=== PATIENT | male | born 1960 | race Caucasian/White ===

== ENCOUNTER 2022-02-25 05:24 | Inpatient (IN) | payer OTHER ==
[2022-02-19 15:01] LABS: BASOPHILS # (AUTO) 0.1 X10'3 (0-0.2); BASOPHILS % (AUTO) 1.1 % (0-1); EOSINOPHILS # (AUTO) 0.2 X10'3 (0-0.9); EOSINOPHILS % (AUTO) 2.6 % (0-6); MEAN CORPUSCULAR HEMOGLOBIN 31.3 PG (27.0-31.0); MEAN CORPUSCULAR HGB CONC 34.5 g/dL (33.0-36.5); MEAN CORPUSCULAR VOLUME 90.8 FL (78-98); MEAN PLATELET VOLUME 7.4 FL (7.4-10.4); MONOCYTES # (AUTO) 0.5 X10'3 (0-0.9); NEUTROPHILS # (AUTO) 3.9 X10'3 (1.8-7.7); NEUTROPHILS % (AUTO) 58.3 % (42-75); PRE OP HEMATOCRIT 43.2 % (42.0-52.0); PRE OP HEMOGLOBIN 14.9 g/dL (14.0-17.9); PRE OP PLATELET COUNT 227 X10'3 (140-440); RED BLOOD COUNT 4.76 X10'6 (4.70-6.10); RED CELL DISTRIBUTION WIDTH 13.9 % (11.5-14.5)
[2022-02-19 15:09] LABS: ALBUMIN 3.9 G/DL (3.4-5.0); ALBUMIN/GLOBULIN RATIO 1.1 (1.1-1.5); ALKALINE PHOSPHATASE 86 IU/L (46-116); BLOOD UREA NITROGEN 16 MG/DL (7-18); BUN/CREATININE RATIO 14.3 (5.4-32.0); CALCIUM 8.6 MG/DL (8.5-10.1); CHLORIDE 109 MMOL/L (99-107); CREATININE 1.12 MG/DL (0.60-1.10); PRE OP ALT 32 U/L (30-65); PRE OP ANION GAP 9 (8-16); PRE OP AST 19 U/L (10-37); PRE OP BILIRUB, TOTAL 0.4 MG/DL (0.0-1.0); PRE OP GLUCOSE 94 MG/DL (70-104); PRE OP POTASSIUM 4.1 MMOL/L (3.4-5.1); PRE OP SODIUM 145 MMOL/L (135-145); TOTAL CARBON DIOXIDE 26.8 MMOL/L (24-32); TOTAL PROTEIN 7.4 G/DL (6.4-8.2); eGFR 66 ML/MIN
[2022-02-25] VITALS (22 sets, daily range): BP systolic 106–157; BP diastolic 66–95
[~2022-02-25] VITALS: Ht 182.9 cm; Wt 124.0 kg
[~2022-02-25 05:24] MED LIST: NO HOME MEDS; ringers solution, lacted 1,000 ML IV SCH
[2022-02-25] MEDS ORDERED: celeCOXIB 100mg capsule PO ONE (05:30)
[2022-02-25] MEDS ORDERED: gabapentin 300mg capsule PO ONE (05:30)
[2022-02-25] MEDS ORDERED: vancomycin 1,500 MG in NS 300ml IV soln IV ONE (05:30)
[2022-02-25] MEDS ORDERED: acetaminophen 325mg tablet PO ONE (05:30)
[2022-02-25] MEDS ORDERED: tranexamic acid inj. 1,000 MG in normal saline 100ml IV soln 90 ML IV ONE (05:30)
[2022-02-25] MEDS ORDERED: ceFAZolin inj. 3,000 MG in normal saline 100ml IV soln 100 ML IV ONE ×2 (05:30→16:00)
[2022-02-25] MEDS ORDERED: famotidine 20mg tablet PO ONE (05:30)
[2022-02-25] MEDS ORDERED: metoclopramide 5 mg/ml inj IV ONE (05:30)
[2022-02-25] MEDS: oxyCODONE SR 10mg (sust. release) tab -2 tabs (20mg) PO ONE ×2 (06:01→06:30)
[2022-02-25] MEDS ORDERED: ondansetron/PF 4mg/2ml inj IV PRN ×2 (06:45→07:20)
[2022-02-25] MEDS ORDERED: HYDROmorphone inj. 0.5 MG/0.5 ML DISP.SYRIN IV PRN (06:45)
[2022-02-25] MEDS ORDERED: magnesium hydroxide 30ml (MOM) UD suspension PO PRN (06:45)
[2022-02-25] MEDS ORDERED: diphenhydrAMINE 25mg capsule PO PRN ×2 (06:45)
[2022-02-25] MEDS ORDERED: bisacodyl 10mg suppository rectal RC PRN (06:45)
[2022-02-25] MEDS ORDERED: tranexamic acid inj. 1,250 MG in normal saline 100ml IV soln 100 ML IV ONE ×2 (06:45→12:00)
[2022-02-25] MEDS ORDERED: naloxone 0.4 mg/ml inj IV PRN (06:45)
[2022-02-25] MEDS ORDERED: acetaminophen 325mg tablet PO PRN (06:45)
[2022-02-25] MEDS ORDERED: oxyCODONE/APAP 10/325mg tablet PO PRN (06:45)
[2022-02-25] MEDS ORDERED: fentaNYL/PF 50MCG/1 ML 2ML syringe ONE (07:13)
[2022-02-25] MEDS ORDERED: MIDAZolam 1 MG/ML 5ML VIAL ONE (07:13)
[2022-02-25] MEDS ORDERED: cloNIDine hcl/PF 100mcg/ml inj ONE (07:17)
[2022-02-25] MEDS ORDERED: ROPIVAcaine 0.5% (5mg/ml) 30ml vial ONE (07:17)
[2022-02-25] MEDS ORDERED: epiNEPHrine 1 mg/ml inj ONE (07:17)
[2022-02-25] MEDS ORDERED: ketorolac trometh. 30mg/ml inj. ONE (07:18)
[2022-02-25] MEDS ORDERED: vancomycin 1,000mg inj ONE (07:18)
[2022-02-25] MEDS ORDERED: ringers solution, lacted 1,000 ML IV SCH (07:20)
[2022-02-25] MEDS ORDERED: ROPIVAcaine 0.2%/PF PUMP/bolus 545 ML ADDCANAL SCH (07:20)
[2022-02-25] MEDS ORDERED: proCHLORperazine 10 MG/2 ml inj IV PRN (07:20)
[2022-02-25] MEDS ORDERED: meperidine/PF 25mg/ml syringe IV PRN ×2 (07:20)
[2022-02-25] MEDS ORDERED: morphine 4 MG/ML inj SYRINge IV PRN (07:20)
[2022-02-25] MEDS ORDERED: ROPIVAcaine 0.2% (10 MG/5 ML) BOLUS INJECTION ADDCANAL PRN (07:20)
[2022-02-25] MEDS ORDERED: morphine 2 MG/ML inj. syringe IV PRN (07:20)
[2022-02-25] MEDS ORDERED: propofol inj 20 ML IV ONE ×2 (07:25→08:57)
[2022-02-25] MEDS ORDERED: ceFAZolin/D5W- 1GM premix 50 ML IV SCH (08:00)
[2022-02-25] MEDS: ascorbic acid 500mg tablet PO SCH ×2 (08:00→19:44)
--- NOTE | 2022-02-25 08:04 | NUR ---
PEDAL PULSES MARKED, CSM INTACT, NO NASAL OINTMENT USED PER PATIENT BUT HE DID WATCH ORTHO VIDEO FOR SURGERY PRIOR TO TODAY.
[2022-02-25] MEDS: aspirin 325mg tablet PO SCH (08:30)
--- NOTE | 2022-02-25 09:22 | NUR ---
Received from OR via , accompanied by Anesthesiologist DR RODRIGUEZ and report given by Anesthesiolgist. PT PRESENTS WITH PIV 18G RIGHT HAND LEFT KNEE WITH STEFANI DRESSING, ON-Q READY, WRAP AND PODER PACK COLEMAN, VSS. Addendum: 02/25/22 at 1006 by Gely Hernandez RN, RN Amended: Links added.
--- NOTE | 2022-02-25 10:33 | NUR ---
PT PUT BILATERAL HEARING AIDS AND PT PUT ON GLASSES TO WATCH TV AT THIS TIME. Addendum: 02/25/22 at 1035 by Gely Hernandez RN, RN Amended: Links added.
--- NOTE | 2022-02-25 10:37 | NUR ---
PT'S NITZA . I CALLED NITZA TO LET HER KNOW HER IS IN [facility] AND I WOULD NOTIFY HER WHEN PT GOES TO A ROOM. Addendum: 02/25/22 at 1038 by Gely Hernandez RN, RN Amended: Links added.
[2022-02-25] MEDS: meperidine/PF 25mg/ml syringe IV PRN ×2 (11:19→12:23)
[2022-02-25] MEDS: oxyCODONE/APAP 10/325mg tablet PO PRN ×2 (12:31→17:55)
--- NOTE | 2022-02-25 12:31 | NUR ---
Patient in room [facility]TH[facility] 4015A. I have received report from MEERA JOY FROM [facility] and had the opportunity to ask questions and assume patient care.
--- NOTE | 2022-02-25 12:42 | NUR ---
Report called to receiving nurse HUONG ESTES. Transferred via HOSPITAL BED TO ROOM 401. PT WENT TO FLOOE WITH BILATERAL HEARING AIDS AND GLASSES WITH 2 PT BELINGING BAGS. BED IN LOW LOCKED POSITION, CALL LIGHT IN REACH. PT HOOKED UP TO [employer] MACHINE. Special Issues communicated to receiving nurse. Addendum: 02/25/22 at 1512 by Gely Hernandez RN RN Amended: Links added.
[2022-02-25] MEDS: gabapentin 300mg capsule PO SCH ×3 (13:00→23:30)
[2022-02-25] MEDS: HYDROmorphone 1 mg/ml syringe IV PRN (14:20)
[2022-02-25] MEDS: potassium cl 20mEq in 1/2 NS 1,000 ML IV SCH ×3 (14:45→22:45)
[2022-02-25] MEDS ORDERED: cefazolin/dext.iso 2gm/100ml 100 ML IV SCH (16:00)
[2022-02-25] MEDS ORDERED: vancomycin inj 1,750 MG in normal saline 500ml IV soln 350 ML IV ONE (19:00)
--- NOTE | 2022-02-25 19:02 | NUR ---
Patient in room [facility]TH[facility] 4015. I have received report from FARHAN ESTES and had the opportunity to ask questions and assume patient care.
--- NOTE | 2022-02-25 19:26 | NUR ---
Problems reprioritized. Patient report given, questions answered & plan of care reviewed with MEERA FONSECA.
--- NOTE | 2022-02-25 20:00 | NUR ---
patient ambulated 300ft
[2022-02-25] MEDS ORDERED: sennosides 8.6mg tablet PO SCH (21:00)
[2022-02-26 02:00] VITALS: BP 120/69
[2022-02-26 05:00] VITALS: BP 158/80
[2022-02-26] MEDS: potassium cl 20mEq in 1/2 NS 1,000 ML IV SCH (05:30)
[2022-02-26] MEDS: HYDROmorphone 1 mg/ml syringe IV PRN (05:31)
--- NOTE | 2022-02-26 06:16 | NUR ---
Problems reprioritized. Patient report given, questions answered & plan of care reviewed with FARHAN ESTES.
--- NOTE | 2022-02-26 06:17 | NUR ---
Problems reprioritized. Patient report given, questions answered & plan of care reviewed with FARHAN ESTES.
[2022-02-26 06:39] LABS: BASOPHILS % (AUTO) 0.4 % (0-1); EOSINOPHILS # (AUTO) 0.1 X10'3 (0-0.9); EOSINOPHILS % (AUTO) 1.2 % (0-6); HEMATOCRIT 36.7 % (42.0-52.0); HEMOGLOBIN 12.6 g/dl (14.0-17.9); LYMPHOCYTES # (AUTO) 1.1 X10'3 (1.1-4.8); LYMPHOCYTES % (AUTO) 13.9 % (21-51); MEAN CORPUSCULAR HEMOGLOBIN 31.7 PG (27.0-31.0); MEAN CORPUSCULAR HGB CONC 34.2 g/dL (33.0-36.5); MEAN CORPUSCULAR VOLUME 92.6 FL (78-98); MEAN PLATELET VOLUME 7.6 FL (7.4-10.4); MONOCYTES # (AUTO) 0.8 X10'3 (0-0.9); MONOCYTES % (AUTO) 9.8 % (2-12); NEUTROPHILS # (AUTO) 5.9 X10'3 (1.8-7.7); NEUTROPHILS % (AUTO) 74.7 % (42-75); PLATELET COUNT 167 X10'3 (140-440); RED BLOOD COUNT 3.96 X10'6 (4.70-6.10); RED CELL DISTRIBUTION WIDTH 13.7 % (11.5-14.5); WHITE BLOOD COUNT 7.9 X10'3 (4.5-11.0)
--- NOTE | 2022-02-26 06:41 | NUR ---
Patient in room [facility]TH[facility] 4015A. I have received report from MEERA FONSECA and had the opportunity to ask questions and assume patient care.
[2022-02-26 07:03] LABS: ANION GAP 8 (8-16); CHLORIDE 102 MMOL/L (99-107); POTASSIUM 3.9 MMOL/L (3.5-5.1); SODIUM 137 MMOL/L (135-145); TOTAL CARBON DIOXIDE 26.6 MMOL/L (24-32)
[2022-02-26] MEDS: aspirin 325mg tablet PO SCH (09:50)
[2022-02-26] MEDS: gabapentin 300mg capsule PO SCH (09:50)
[2022-02-26] MEDS: ascorbic acid 500mg tablet PO SCH (09:50)
[2022-02-26] MEDS: oxyCODONE/APAP 10/325mg tablet PO PRN (09:51)
[2022-02-26] MEDS ORDERED: ROPIVAcaine 0.2%/PF PUMP/bolus 545 ML ADDCANAL SCH (09:55)
[2022-02-26] MEDS ORDERED: ROPIVAcaine 0.2% (10 MG/5 ML) BOLUS INJECTION ADDCANAL PRN (09:55)
[2022-02-26 10:00] VITALS: BP 150/76
--- NOTE | 2022-02-26 12:03 | NUR ---
Joint surgery consult: Pt s/p R knee surgery this admit per EMR. Pt/SO seen by LIZZIE at bedside for written/verbal high protein ed w/ RD contact information provided. Addendum: 02/26/22 at [address] Amended: Links added.
--- NOTE | 2022-02-26 12:05 | NUR ---
PATIENT STABLE AND APPROPRIATE FOR DISCHARGE, IV REMOVED, NEW ON-Q PLACED, EXTRA STEFANI DRESSING SENT WITH PATIENT, EDUCATION GIVEN, ALL BELONGINGS SENT WITH PATIENT, PATIENT TAKEN TO LOBBY BY WHEELCHAIR TO AN AWAITING CAR WHERE WILL TAKE PATIENT HOME
[2022-02-26] MEDS ORDERED: celeCOXIB 100mg capsule PO SCH ×2 (20:00)
== END 2022-02-26 12:15 | disposition home or self-care (01) | DRG 470 ==
LOC: PAS 05:24 → ORTHO 4S 06:48
PROVIDERS: ADMIT Orthopaedic Surgery; ATTEND Orthopaedic Surgery
PROC: 3E0T3BZ Introduction of Anesthetic Agent into Peripheral Nerves and Plexi, Percutaneous Approach (ICD-10-PCS; 2022-02-25)
PROC: 3E0T33Z Introduction of Anti-inflammatory into Peripheral Nerves and Plexi, Percutaneous Approach (ICD-10-PCS; 2022-02-25)
PROC: 0SRD069 Replacement of Left Knee Joint with Oxidized Zirconium on Polyethylene Synthetic Substitute, Cemented, Open Approach (ICD-10-PCS; principal; 2022-02-25 07:26)
DX: M17.12 Unilateral primary osteoarthritis, left knee (principal); G47.33 Obstructive sleep apnea (adult) (pediatric); E66.01 Morbid (severe) obesity due to excess calories; Z68.37 Body mass index [BMI] 37.0-37.9, adult
CPT/HCPCS: Z7506; Z7508; 36415; 73560; 80051; 80053; 82948; 85025; 87081; 97110; 97116; 97161; A4215; A7000; C1713; C1776; G0378; J0171; J0690; J0735; J1170; J1885; J2175; J2250; J2704; J2765; J2795; J3010; J3370; J3480; J3490; J7040; J7120

== ENCOUNTER 2022-12-09 08:07 | Day surgery (SDC) | payer OTHER ==
[2022-12-05 11:00] LABS: BASOPHILS # (AUTO) 0.1 X10'3 (0-0.2); BASOPHILS % (AUTO) 0.9 % (0-1); EOSINOPHILS # (AUTO) 0.1 X10'3 (0-0.9); EOSINOPHILS % (AUTO) 2.1 % (0-6); LYMPHOCYTES # (AUTO) 1.9 X10'3 (1.1-4.8); LYMPHOCYTES % (AUTO) 29.9 % (21-51); MEAN CORPUSCULAR HEMOGLOBIN 32.2 PG (27.0-31.0); MEAN CORPUSCULAR HGB CONC 34.5 g/dL (33.0-36.5); MEAN CORPUSCULAR VOLUME 93.3 FL (78-98); MEAN PLATELET VOLUME 7.3 FL (7.4-10.4); MONOCYTES # (AUTO) 0.5 X10'3 (0-0.9); MONOCYTES % (AUTO) 8.3 % (2-12); NEUTROPHILS # (AUTO) 3.8 X10'3 (1.8-7.7); NEUTROPHILS % (AUTO) 58.8 % (42-75); PRE OP HEMOGLOBIN 15.9 g/dL (14.0-17.9); PRE OP PLATELET COUNT 236 X10'3 (140-440); RED BLOOD COUNT 4.93 X10'6 (4.70-6.10)
[2022-12-05 11:11] LABS: ALBUMIN 3.9 G/DL (3.4-5.0); ALBUMIN/GLOBULIN RATIO 1.1 (1.1-1.5); ALKALINE PHOSPHATASE 88 IU/L (46-116); BLOOD UREA NITROGEN 14 MG/DL (7-18); BUN/CREATININE RATIO 15.6 (10.0-20.0); CALCIUM 8.8 MG/DL (8.5-10.1); CHLORIDE 106 MMOL/L (99-107); PRE OP ALT 30 U/L (30-65); PRE OP ANION GAP 5 (8-16); PRE OP AST 22 U/L (10-37); PRE OP BILIRUB, TOTAL 0.4 MG/DL (0.0-1.0); PRE OP GLUCOSE 101 MG/DL (70-104); PRE OP POTASSIUM 4.1 MMOL/L (3.4-5.1); PRE OP SODIUM 141 MMOL/L (135-145); TOTAL CARBON DIOXIDE 29.8 MMOL/L (24-32); TOTAL PROTEIN 7.6 G/DL (6.4-8.2); eGFR 85 ML/MIN
[~2022-12-09] VITALS: Ht 182.9 cm; Wt 122.5 kg
[~2022-12-09 08:07] MED LIST changes: -ringers solution, lacted 1,000 ML IV SCH
[2022-12-09 08:35] VITALS: BP 129/80
[2022-12-09] MEDS: ceFAZolin inj. 3,000 MG in normal saline 100ml IV soln 100 ML IV ONE (09:13)
[2022-12-09] MEDS: ringers solution, lacted 1,000 ML IV SCH (09:14)
[2022-12-09] MEDS: vancomycin 1,500 MG in NS 300ml IV soln IV ONE (09:14)
[2022-12-09] MEDS: famotidine 20mg tablet PO ONE (09:15)
[2022-12-09] MEDS ORDERED: cloNIDine hcl/PF 100mcg/ml inj ONE (12:02)
[2022-12-09] MEDS ORDERED: sevoflurane 250ml liquid IH ONE (15:28)
[2022-12-09] MEDS ORDERED: midazolam 1 mg/ML 2ml injection ONE (15:44)
[2022-12-09] MEDS ORDERED: tranexamic acid 100mg/ml inj. ONE (15:57)
[2022-12-09] MEDS ORDERED: LIDOcaine 2% (20mg/ml) 5ml vial ONE (16:00)
[2022-12-09] MEDS ORDERED: propofol inj 20 ML IV ONE ×2 (16:00)
[2022-12-09] MEDS ORDERED: ROPIVAcaine 0.5% (5mg/ml) 30ml vial ONE ×2 (16:00→16:50)
[2022-12-09] MEDS ORDERED: dexamethasone sod phosphate 4mg/ml inj. ONE (16:01)
[2022-12-09] MEDS ORDERED: ondansetron/PF 4mg/2ml inj ONE (16:12)
[2022-12-09] MEDS ORDERED: fentaNYL /PF 50mcg/ml 5ml ampule ONE (16:12)
[2022-12-09] MEDS ORDERED: vancomycin 1,000mg inj ONE (16:33)
[2022-12-09] MEDS ORDERED: ePHEDrine 50MG/ML INJ. ONE (16:47)
[2022-12-09] MEDS: ROPIVAcaine 0.5% (5mg/ml) 30ml vial IJ ONE (17:00)
[2022-12-09 17:23] VITALS: BP 147/59
--- NOTE | 2022-12-09 17:23 | NUR ---
Received from OR via , accompanied by Anesthesiologist SHERRY AND OR NURSE and report given by Anesthesiolgist. PT IS DROWSY YET FOLLOWS VERBAL COMMANDS. PT C/O OF PAIN TO KNEE CAP. STEFANI DRESSING IN PLACE WITH IMMOBILIZER ON. 20G TO RT HAND. VSS Addendum: 12/09/22 at 1847 by Danielle Nam RN Amended: Links added.
[2022-12-09 17:30] VITALS: BP 149/85
[2022-12-09 17:40] VITALS: BP 141/77
[2022-12-09] MEDS ORDERED: meperidine/PF 25mg/ml syringe IV PRN ×2 (17:45)
[2022-12-09] MEDS ORDERED: fentaNYL/PF 50MCG/1 ML 2ML syringe IV PRN ×2 (17:45)
[2022-12-09] MEDS ORDERED: ondansetron/PF 4mg/2ml inj IV PRN (17:45)
[2022-12-09] MEDS: meperidine/PF 25mg/ml syringe ONE (17:47)
[2022-12-09 17:50] VITALS: BP 120/75
[2022-12-09 18:00] VITALS: BP 134/75
[2022-12-09] MEDS: HYDROcodone/acetaminophen 5mg/325mg tablet PO ONE (18:18)
--- NOTE | 2022-12-09 18:23 | NUR ---
ALL DISCHARGE CRITERIA HAS BEEN MET. VSS, PAIN AT A TOLERABLE LEVEL, VOIDING AND ABLE TO SAFELY AMBULATE AND TRANSFER SELF. IV TAKEN OUT WITHOUT ANY COMPLICATIONS. ALL DISCHARGE INSTRUCTIONS COVERED WITH PATIENT AND ALL QUESTIONS ANSWERED. PATIENT TAKEN OUT VIA WHEELCHAIR TO PERSONAL VEHICLE WHERE FAMILY/FRIEND DROVE PATIENT HOME. Addendum: 12/09/22 at 1848 by Danielle Nam RN Amended: Links added.
[2022-12-09] MEDS ORDERED: vancomycin inj 1,750 MG in normal saline 500ml IV soln 350 ML IV ONE (20:00)
== END 2022-12-09 18:23 | disposition home or self-care (01) ==
LOC: PAS 08:07
PROVIDERS: ATTEND Orthopaedic Surgery
DX: M97.12XA Periprosthetic fracture around internal prosthetic left knee joint, initial encounter (principal); Z98.890 Other specified postprocedural states; G89.18 Other acute postprocedural pain; Z72.89 Other problems related to lifestyle; G47.30 Sleep apnea, unspecified
CPT/HCPCS: 27486; 27524; 36415; 64447; 80053; 82948; 85025; 93005; A6222; C1713; C1776; J0690; J0735; J1100; J2175; J2250; J2405; J2704; J2795; J3010; J3370; J3490; J7030; J7060; J7120; Z7506; Z7508; Z7512; A4618; A6449; A7000; A9272; J7040